=== PATIENT | male | born 1965 | race Caucasian/White ===

== ENCOUNTER 2017-06-11 19:57 | Emergency (ER) | payer MEDICAID ==
[2017-06-11 20:17] VITALS: BP 151/86
[2017-06-11] MEDS ORDERED: NORMAL SALINE 1000 ML 1,000 ML IV ONE (20:34)
--- NOTE | 2017-06-11 20:36 | ER Document Report ---
ED Medical Screen (RME) - General Chief Complaint: Hyperglycemia Stated Complaint: DIZZINESS Time Seen by Provider: 06/11/17 20:27 Mode of Arrival: Ambulatory Information source: Patient TRAVEL OUTSIDE OF THE [place] IN LAST 30 DAYS: No - HPI Patient complains to provider of: dizziness Onset: Other - 3-4 days Onset/Duration: Waxing and waning Quality of pain: No pain Associated Symptoms: Dizzy/lightheaded, Nausea Notes: 06/11/17 20:36 Patient is a 52-year-old male who presents to the emergency room complaining of dizzy spells that have been going on for the past few days, reporting the sensation that he is going to "fall out", he reports some nausea at times as well, increased thirst, increased urination, occasional shortness of breath, patient is a diabetic, reports his blood sugars have been fluctuating and have been increased over the last few days - Related Data Allergies/Adverse Reactions: No Known Allergies Allergy (Unverified 06/11/17 20:16) Past Medical History Renal/ Medical History: Denies: Hx Peritoneal Dialysis Physical Exam - Vital signs Vitals: Temp Pulse Resp BP Pulse Ox 98.9 F 76 20 151/86 H 97 06/11/17 20:13 06/11/17 20:13 06/11/17 20:13 06/11/17 20:13 06/11/17 20:13 Course - Vital Signs Vital signs: Temp Pulse Resp BP Pulse Ox 98.9 F 76 20 151/86 H 97 06/11/17 20:13 06/11/17 20:13 06/11/17 20:13 06/11/17 20:13 06/11/17 20:13
[2017-06-11 21:02] LABS: ABSOLUTE BASOPHILS # (AUTO) 0.1 10^3/uL (0.0-0.2); ABSOLUTE EOSINOPHILS # (AUTO) 0.1 10^3/uL (0.0-0.6); ABSOLUTE LYMPHOCYTES (AUTO) 1.6 10^3/uL (0.5-4.7); ABSOLUTE MONOCYTES (AUTO) 0.5 10^3/uL (0.1-1.4); ABSOLUTE NEUT (AUTO) 3.4 10^3/uL (1.7-8.2); BASOPHILS % (AUTO) 1.2 % (0-2); EOSINOPHILS % (AUTO) 2.2 % (0-6); HEMATOCRIT 42.5 % (37.9-51.0); HEMOGLOBIN 14.7 g/dL (13.5-17.0); HGB HCT DIFFERENCE 1.6; LYMPHOCYTES % (AUTO) 28.1 % (13-45); MEAN CORPUSCULAR HEMOGLOBIN 32.3 pg (27.0-33.4); MEAN CORPUSCULAR HGB CONC 34.6 g/dL (32.0-36.0); MEAN CORPUSCULAR VOLUME 94 fl (80-97); MONOCYTES % (AUTO) 8.2 % (3-13); RED BLOOD COUNT 4.55 10^6/uL (4.35-5.55); RED CELL DISTRIBUTION WIDTH 12.6 % (11.5-14.0); SEGMENTED NEUTROPHILS % (AUTO) 60.3 % (42-78); WHITE BLOOD COUNT 5.6 10^3/uL (4.0-10.5)
[2017-06-11 21:07] LABS: APPEARANCE,URINE CLEAR; BILIRUBIN,URINE NEGATIVE (NEGATIVE); GLUCOSE, URINE >=500 mg/dL (NEGATIVE); KETONES,URINE NEGATIVE (NEGATIVE); LEUKOCYTE ESTERASE,URINE NEGATIVE (NEGATIVE); NITRITE,URINE NEGATIVE (NEGATIVE); PROTEIN,URINE NEGATIVE (NEGATIVE); URINE SPECIFIC GRAVITY 1.028; UROBILINOGEN,URINE NEGATIVE mg/dL (<2.0)
[2017-06-11 21:11] LABS: VENOUS BLOOD HCO3 28.4 mmol/L (20-32); VENOUS BLOOD PH 7.36 (7.30-7.42)
[2017-06-11 21:25] LABS: ALANINE AMINOTRANSFERASE 38 U/L (21-72); ALBUMIN 4.5 g/dL (3.5-5.0); ALKALINE PHOSPHATASE 90 U/L (38-126); ANION GAP 14 (5-19); ASPARTATE AMINO TRANSFERASE 14 U/L (17-59); BILIRUBIN,DIRECT 0.4 mg/dL (0.0-0.4); BILIRUBIN,TOTAL 0.7 mg/dL (0.2-1.3); BLOOD UREA NITROGEN 16 mg/dL (7-20); CALCIUM 9.1 mg/dL (8.4-10.2); CARBON DIOXIDE 26 mmol/L (22-30); CHLORIDE 97 mmol/L (98-107); CREATINE KINASE 65 U/L (55-170); CREATININE RESULT 1.15 mg/dL (0.52-1.25); POTASSIUM 4.3 mmol/L (3.6-5.0); SODIUM 136.5 mmol/L (137-145); TOTAL PROTEIN 7.3 g/dL (6.3-8.2)
[2017-06-11 21:37] LABS: GLUCOSE 511 mg/dL (75-110)
[2017-06-11 21:38] LABS: TROPONIN I < 0.012 ng/mL
[2017-06-11] MEDS ORDERED: NORMAL SALINE 1000 ML 1,000 ML IV PRN (21:42)
--- NOTE | 2017-06-12 03:38 | EKG REPORT ---
SEVERITY:- NORMAL ECG - SINUS RHYTHM : Confirmed by: Tosin Heck MD 12-Jun-2017 03:37:32
== END 2017-06-11 21:43 | disposition left against medical advice (07) ==
LOC: ER 19:57
DX: E11.65 Type 2 diabetes mellitus with hyperglycemia (principal); R42 Dizziness and giddiness; R11.0 Nausea; Z53.20 Procedure and treatment not carried out because of patient's decision for unspecified reasons; R06.02 Shortness of breath
CPT/HCPCS: 36415; 80053; 81001; 82550; 82553; 82803; 82962; 84484; 85025; 93005; 93010; 99281